=== PATIENT | male | born 1950 | race Caucasian/White ===

== ENCOUNTER 2018-08-06 10:22 | Day surgery (SDC) | payer MEDICARE, MEDICAID ==
[2018-08-04 16:58] LABS: BASOPHILS # (AUTO) 0.1 X10'3 (0-0.2); BASOPHILS % (AUTO) 0.8 % (0-1); EOSINOPHILS # (AUTO) 0.4 X10'3 (0-0.9); EOSINOPHILS % (AUTO) 3.9 % (0-6); HEMATOCRIT 44.6 % (42.0-52.0); HEMOGLOBIN 14.9 g/dl (14.0-17.9); LYMPHOCYTES # (AUTO) 2.4 X10'3 (1.1-4.8); LYMPHOCYTES % (AUTO) 21.8 % (21-51); MEAN CORPUSCULAR HEMOGLOBIN 31.9 PG (27.0-31.0); MEAN CORPUSCULAR HGB CONC 33.5 g/dL (33.0-36.5); MEAN CORPUSCULAR VOLUME 95.2 FL (78-98); MEAN PLATELET VOLUME 7.9 FL (7.4-10.4); MONOCYTES # (AUTO) 0.7 X10'3 (0-0.9); MONOCYTES % (AUTO) 6.9 % (2-12); NEUTROPHILS # (AUTO) 7.2 X10'3 (1.8-7.7); NEUTROPHILS % (AUTO) 66.6 % (42-75); PLATELET COUNT 331 X10'3 (140-440); RED BLOOD COUNT 4.68 X10'6 (4.70-6.10); RED CELL DISTRIBUTION WIDTH 13.6 % (11.5-14.5); WHITE BLOOD COUNT 10.8 X10'3 (4.5-11.0)
[2018-08-04 17:09] LABS: PARTIAL THROMBOPLASTIN TIME 27 SECONDS (22-32); PROTHROMBIN TIME 10.2 SECONDS (9.0-12.0)
[2018-08-04 17:15] LABS: ALANINE AMINOTRANSFERASE 27 U/L (12-78); ALBUMIN 4.2 G/DL (3.4-5.0); ALBUMIN/GLOBULIN RATIO 1.1 (1.1-1.5); ALKALINE PHOSPHATASE 113 IU/L (46-116); ANION GAP 10 (8-16); ASPARTATE AMINO TRANSFERASE 24 U/L (10-37); BILIRUBIN,TOTAL 0.4 MG/DL (0.1-1.0); BLOOD UREA NITROGEN 14 MG/DL (7-18); BUN/CREATININE RATIO 15.4 (5.4-32.0); CALCIUM 9.5 MG/DL (8.5-10.1); CHLORIDE 102 MMOL/L (99-107); CREATININE 0.91 MG/DL (0.60-1.10); GLUCOSE 100 MG/DL (70-104); POTASSIUM 3.7 MMOL/L (3.5-5.1); SODIUM 139 MMOL/L (135-145); TOTAL CARBON DIOXIDE 27.1 MMOL/L (24-32); TOTAL PROTEIN 8.1 G/DL (6.4-8.2); eGFR 83 ML/MIN
[2018-08-06] VITALS (12 sets, daily range): BP systolic 127–179; BP diastolic 61–86
[~2018-08-06] VITALS: Ht 180.3 cm; Wt 99.6 kg
[2018-08-06] MEDS ORDERED: normal saline 1000ml 1,000 ML IV SCH (10:45)
[2018-08-06] MEDS ORDERED: LORazepam 0.5 MG tablet PO PRN (10:45)
[2018-08-06] MEDS ORDERED: nitroGLYCERIN 0.4mg SUBLingual tab SL PRN (10:45)
[2018-08-06] MEDS ORDERED: diphenhydrAMINE 25mg capsule PO PRN (10:45)
[2018-08-06] MEDS ORDERED: IBUP-1986 PO (11:24)
[2018-08-06] MEDS ORDERED: VITA-321 (11:24)
[2018-08-06] MEDS ORDERED: L-METHYLFOLATE (11:25)
[2018-08-06] MEDS ORDERED: B12 (11:25)
[2018-08-06] MEDS ORDERED: LIDOcaine 1% (10mg/ml)w/preservative injection 20ml MDV ONE (12:01)
[2018-08-06] MEDS ORDERED: iohexol 350MG/ML 100ml bottle IV ONE (12:01)
[2018-08-06] MEDS ORDERED: midazolam 2 mg/2 ml injection ONE ×2 (12:01→12:45)
[2018-08-06] MEDS ORDERED: fentaNYL/PF 50MCG/1 ML 2ML syringe ONE (12:01)
[2018-08-06] MEDS ORDERED: iohexol 350 MG/ML 50ML vial IV ONE (12:01)
[2018-08-06] MEDS ORDERED: HYDROcodone/acetaminophen 5mg/325mg tablet PO PRN (13:30)
[2018-08-06] MEDS ORDERED: ondansetron/PF 4mg/2ml inj IV PRN (13:30)
[2018-08-06] MEDS ORDERED: proCHLORperazine 10 MG/2 ml inj IV PRN (13:30)
[2018-08-06] MEDS ORDERED: HYDROcodone/acetaminophen 10/325mg tab PO PRN (13:30)
[2018-08-06] MEDS ORDERED: OXAZEpam 15mg capsule PO PRN (13:30)
== END 2018-08-06 19:00 | disposition home or self-care (01) ==
LOC: SSTAY O 10:22
PROVIDERS: ATTEND Internal Medicine Cardiovascular Disease
DX: R07.89 Other chest pain (principal); Z79.01 Long term (current) use of anticoagulants; Z88.1 Allergy status to other antibiotic agents; Z88.8 Allergy status to other drugs, medicaments and biological substances; Z87.891 Personal history of nicotine dependence; Z88.0 Allergy status to penicillin; Z96.642 Presence of left artificial hip joint; Z79.899 Other long term (current) drug therapy
CPT/HCPCS: 36415; 71046; 80053; 85025; 85610; 85730; 93458; 99152; 99153; A6257; J1644; J2001; J2250; J3010; J7030; Q0163; Q9967; A4620; C1760; C1769

== ENCOUNTER 2018-08-19 08:23 | Inpatient (IN) | payer MEDICARE, MEDICAID ==
[2018-08-17 13:23] LABS: BASOPHILS # (AUTO) 0.1 X10'3 (0-0.2); BASOPHILS % (AUTO) 0.8 % (0-1); EOSINOPHILS # (AUTO) 0.3 X10'3 (0-0.9); EOSINOPHILS % (AUTO) 2.8 % (0-6); LYMPHOCYTES # (AUTO) 1.7 X10'3 (1.1-4.8); LYMPHOCYTES % (AUTO) 17.4 % (21-51); MEAN CORPUSCULAR HEMOGLOBIN 32.4 PG (27.0-31.0); MEAN CORPUSCULAR HGB CONC 34.3 g/dL (33.0-36.5); MEAN CORPUSCULAR VOLUME 94.6 FL (78-98); MEAN PLATELET VOLUME 7.6 FL (7.4-10.4); MONOCYTES # (AUTO) 0.8 X10'3 (0-0.9); NEUTROPHILS # (AUTO) 6.9 X10'3 (1.8-7.7); PRE OP HEMATOCRIT 42.1 % (42.0-52.0); PRE OP HEMOGLOBIN 14.4 g/dL (14.0-17.9); PRE OP PLATELET COUNT 328 X10'3 (140-440); RED BLOOD COUNT 4.45 X10'6 (4.70-6.10)
[2018-08-17 13:41] LABS: PRE OP PROTIME 10.2 SECONDS (9.0-12.0)
[2018-08-17 13:42] LABS: ALBUMIN 4.1 G/DL (3.4-5.0); ALKALINE PHOSPHATASE 113 IU/L (46-116); BLOOD UREA NITROGEN 14 MG/DL (7-18); BUN/CREATININE RATIO 17.7 (5.4-32.0); CALCIUM 9.7 MG/DL (8.5-10.1); CHLORIDE 102 MMOL/L (99-107); CREATININE 0.79 MG/DL (0.60-1.10); PRE OP ALT 39 U/L (30-65); PRE OP ANION GAP 11 (8-16); PRE OP AST 25 U/L (10-37); PRE OP BILIRUB, TOTAL 0.5 MG/DL (0.0-1.0); PRE OP GLUCOSE 105 MG/DL (70-104); PRE OP POTASSIUM 3.8 MMOL/L (3.4-5.1); PRE OP SODIUM 139 MMOL/L (135-145); TOTAL CARBON DIOXIDE 26.4 MMOL/L (24-32); TOTAL PROTEIN 8.1 G/DL (6.4-8.2); eGFR > 90 ML/MIN
[~2018-08-19] VITALS: Ht 180.3 cm; Wt 97.9 kg
[2018-08-19] VITALS (21 sets, daily range): BP systolic 119–153; BP diastolic 49–97
[~2018-08-19 08:23] MED LIST: IBUP-1986 PO; ceFAZolin 2gm in dextrose, iso 100 ML IV ONE; famotidine 20mg tablet PO ONE; ringers solution, lacted 1,000 ML IV SCH; tranexamic acid inj. 1,000 MG in normal saline 100 ML IV ONE; vancomycin inj 1,500 MG in normal saline 300ml IV soln IV ONE
[2018-08-19] MEDS ORDERED: METHYLFOLATE PO (09:05)
[2018-08-19] MEDS ORDERED: CHOL400T14 PO (09:05)
[2018-08-19] MEDS ORDERED: ASPI81TA52 PO (09:05)
[2018-08-19] MEDS ORDERED: MULT-933 PO (09:05)
[2018-08-19] MEDS ORDERED: [UNRECOGNIZED DRUG - CODE] (09:05)
[2018-08-19] MEDS ORDERED: MECO0.5P PO (09:05)
[2018-08-19] MEDS ORDERED: SELE200T25 PO (09:15)
[2018-08-19] MEDS ORDERED: ASPI-1264 PO (09:15)
[2018-08-19] MEDS ORDERED: MAGN296S50 PO (09:15)
[2018-08-19] MEDS ORDERED: CHOL300T (09:15)
[2018-08-19] MEDS ORDERED: [UNRECOGNIZED DRUG - CODE] (09:15)
[2018-08-19] MEDS ORDERED: tetracaine 1% (10mg/ml) pres. free inj. ONE (10:08)
[2018-08-19] MEDS ORDERED: diphenhydrAMINE 50 mg/ml inj ONE (10:10)
[2018-08-19] MEDS ORDERED: ePHEDrine 50MG/ML INJ. ONE (10:10)
[2018-08-19] MEDS ORDERED: fentaNYL/PF 50MCG/1 ML 2ML syringe ONE ×2 (10:12→10:50)
[2018-08-19] MEDS ORDERED: morphine /PF 1mg/ml 10ml inj. ONE (10:12)
[2018-08-19] MEDS ORDERED: MIDAZolam 5mg/5ml vial ONE (10:12)
[2018-08-19] MEDS ORDERED: LIDOcaine 1%/PF 5ML 10 MG/ML VIAL ONE (10:40)
[2018-08-19] MEDS ORDERED: propofol inj 20 ML IV ONE ×3 (10:40→13:11)
[2018-08-19] MEDS ORDERED: naloxone 2mg/2ml inj 2 MG in normal saline 500ml IV soln 500 ML IV PRN (11:40)
[2018-08-19] MEDS ORDERED: ringers solution, lacted 1,000 ML IV SCH (11:40)
[2018-08-19] MEDS ORDERED: diphenhydrAMINE 50 mg/ml inj IV PRN (11:40)
[2018-08-19] MEDS ORDERED: ondansetron/PF 4mg/2ml inj IV PRN ×2 (11:40)
[2018-08-19] MEDS ORDERED: proCHLORperazine 10 MG/2 ml inj IV PRN ×2 (11:40→22:10)
[2018-08-19] MEDS ORDERED: meperidine/PF 25mg/ml syringe IV PRN ×3 (11:40)
[2018-08-19] MEDS ORDERED: morphine 4 MG/ML inj SYRINge IV PRN ×2 (11:40)
[2018-08-19] MEDS ORDERED: midazolam 2 mg/2 ml injection ONE (12:06)
--- NOTE | 2018-08-19 12:59 | NUR ---
Received from OR via BED, accompanied by Anesthesiologist DR PECK and report given by Anesthesiologist. PT AWAKE, DENIES PAIN, LEFT HIP W/WRAP, ABDUCTION WEDGE, ICE PACK, CHARLENE DRAIN, CDI. Addendum: 08/19/18 at 1346 by Mirlande Conde RN Amended: Links added.
[2018-08-19] MEDS ORDERED: ondansetron/PF 4mg/2ml inj ONE (13:11)
[2018-08-19] MEDS ORDERED: HYDROmorphone 1 mg/ml syringe IV PRN (13:20)
[2018-08-19] MEDS ORDERED: acetaminophen 325mg tablet PO PRN (13:20)
[2018-08-19] MEDS ORDERED: diphenhydrAMINE 25mg capsule PO PRN (13:20)
[2018-08-19] MEDS ORDERED: magnesium hydroxide 30ml (MOM) UD suspension PO PRN (13:20)
[2018-08-19] MEDS ORDERED: bisacodyl 10mg suppository rectal RC PRN (13:20)
--- NOTE | 2018-08-19 14:35 | NUR ---
Patient transferring to room ORTHO 4024. I have received report from Mirlande Ness in Recovery and had the opportunity to ask questions and assume patient care.
--- NOTE | 2018-08-19 14:39 | NUR ---
Report called to receiving nurse. Transferred via BED, 2 BAGS OF Belongings AND CRUTCHES SENT W/PT TO ROOM 402, RECEIVING RN AT BEDSIDE TO RECEIVE PT, BLL, CALL LIGHT GIVEN, SIDE RAILS UP X 2. Special Issues communicated to receiving nurse. YES. Addendum: 08/19/18 at 1456 by Mirlande Conde RN Amended: Links added.
[2018-08-19] MEDS: ceFAZolin 1GM/D5W- ADD-VANTAGE 50 ML IV SCH (16:05)
[2018-08-19] MEDS: potassium Cl 20mEq in NS 1,000 ML IV SCH (16:07)
[2018-08-19] MEDS: ondansetron/PF 4mg/2ml inj IV PRN (17:37)
[2018-08-19] MEDS: HYDROcodone/acetaminophen 10/325mg tab PO PRN (17:38)
--- NOTE | 2018-08-19 18:10 | NUR ---
Problems reprioritized. Patient report given, questions answered & plan of care reviewed with Brigid CUMMINGS.
--- NOTE | 2018-08-19 18:20 | NUR ---
Patient in room ORTHO 4024. I have received report from Herlinda CUMMINGS and had the opportunity to ask questions and assume patient care.
[2018-08-19] MEDS ORDERED: HYDROcodone/acetaminophen 10/325mg tab PO ONE (19:25)
[2018-08-19] MEDS ORDERED: vancomycin/NS 1 GM ADD-VANTAGE 250 ML IV SCH (20:00)
--- NOTE | 2018-08-19 20:30 | NUR ---
called Dr. Steele to inform him that patient needed a one time Rufe order and he gave me the order.
[2018-08-19] MEDS: sennosides 8.6mg tablet PO SCH (21:00)
--- NOTE | 2018-08-19 22:30 | NUR ---
Dr. Steele gave me an order for Compazine IV since he is still vomiting up bile after getting Zofran.
[2018-08-20] MEDS: ceFAZolin 1GM/D5W- ADD-VANTAGE 50 ML IV SCH (00:26)
[2018-08-20] MEDS: ondansetron/PF 4mg/2ml inj IV PRN (00:33)
[2018-08-20] MEDS: diphenhydrAMINE 25mg capsule PO PRN ×2 (01:30→22:18)
[2018-08-20 02:00] VITALS: BP 141/67
[2018-08-20] MEDS: potassium Cl 20mEq in NS 1,000 ML IV SCH ×4 (02:02→21:16)
[2018-08-20] MEDS: HYDROcodone/acetaminophen 10/325mg tab PO PRN ×5 (05:34→22:21)
[2018-08-20 06:00] VITALS: BP 154/77
--- NOTE | 2018-08-20 06:15 | NUR ---
Patient in room ORTHO 4024. I have received report from Brigid CUMMINGS and had the opportunity to ask questions and assume patient care.
[2018-08-20 07:35] LABS: BASOPHILS % (AUTO) 0.3 % (0-1); EOSINOPHILS # (AUTO) 0.1 X10'3 (0-0.9); EOSINOPHILS % (AUTO) 0.6 % (0-6); HEMATOCRIT 36.5 % (42.0-52.0); HEMOGLOBIN 12.3 g/dl (14.0-17.9); LYMPHOCYTES # (AUTO) 1.3 X10'3 (1.1-4.8); MEAN CORPUSCULAR HGB CONC 33.6 g/dL (33.0-36.5); MEAN PLATELET VOLUME 7.8 FL (7.4-10.4); MONOCYTES # (AUTO) 1.2 X10'3 (0-0.9); MONOCYTES % (AUTO) 11.4 % (2-12); NEUTROPHILS # (AUTO) 8.3 X10'3 (1.8-7.7); NEUTROPHILS % (AUTO) 75.7 % (42-75); PLATELET COUNT 272 X10'3 (140-440); RED BLOOD COUNT 3.84 X10'6 (4.70-6.10); RED CELL DISTRIBUTION WIDTH 13.5 % (11.5-14.5); WHITE BLOOD COUNT 10.9 X10'3 (4.5-11.0)
[2018-08-20 08:15] LABS: ALANINE AMINOTRANSFERASE 25 U/L (12-78); ALBUMIN 3.1 G/DL (3.4-5.0); ALBUMIN/GLOBULIN RATIO 0.9 (1.1-1.5); ALKALINE PHOSPHATASE 81 IU/L (46-116); ANION GAP 8 (8-16); ASPARTATE AMINO TRANSFERASE 19 U/L (10-37); BILIRUBIN,TOTAL 0.7 MG/DL (0.1-1.0); BLOOD UREA NITROGEN 7 MG/DL (7-18); BUN/CREATININE RATIO 7.5 (5.4-32.0); CALCIUM 8.4 MG/DL (8.5-10.1); CHLORIDE 103 MMOL/L (99-107); CREATININE 0.93 MG/DL (0.60-1.10); GLUCOSE 119 MG/DL (70-104); POTASSIUM 3.9 MMOL/L (3.5-5.1); SODIUM 136 MMOL/L (135-145); TOTAL CARBON DIOXIDE 24.6 MMOL/L (24-32); TOTAL PROTEIN 6.5 G/DL (6.4-8.2); eGFR 81 ML/MIN
[2018-08-20] MEDS: aspirin 325mg tablet PO SCH (09:16)
[2018-08-20 10:00] VITALS: BP 146/64
[2018-08-20] MEDS ORDERED: mag hydrox/Alum hydrox/simeth 30ml oral suspension PO PRN (15:20)
[2018-08-20] MEDS: simethicone 125mg capsule PO PRN ×2 (15:56→18:23)
[2018-08-20 18:00] VITALS: BP 131/66
--- NOTE | 2018-08-20 18:16 | NUR ---
Problems reprioritized. Patient report given, questions answered & plan of care reviewed with Brittany Devi RN.
[2018-08-20] MEDS ORDERED: simethicone 125mg capsule PO SCH (21:00)
[2018-08-20 22:00] VITALS: BP 136/67
[2018-08-20] MEDS: sennosides 8.6mg tablet PO SCH (22:18)
[2018-08-21] MEDS: potassium Cl 20mEq in NS 1,000 ML IV SCH (05:16)
[2018-08-21] MEDS: HYDROcodone/acetaminophen 10/325mg tab PO PRN ×5 (05:19→22:00)
[2018-08-21 06:00] VITALS: BP 152/67
--- NOTE | 2018-08-21 06:25 | NUR ---
Patient in room ORTHO 4024. I have received report from Brittany Devi RN and had the opportunity to ask questions and assume patient care.
--- NOTE | 2018-08-21 06:26 | NUR ---
Problems reprioritized. Patient report given, questions answered & plan of care reviewed with ZOILA Pate.
[2018-08-21] MEDS: aspirin 325mg tablet PO SCH (08:21)
[2018-08-21 08:27] LABS: BASOPHILS % (AUTO) 0.2 % (0-1); EOSINOPHILS # (AUTO) 0.2 X10'3 (0-0.9); EOSINOPHILS % (AUTO) 1.4 % (0-6); HEMATOCRIT 34.7 % (42.0-52.0); HEMOGLOBIN 11.6 g/dl (14.0-17.9); LYMPHOCYTES # (AUTO) 1.1 X10'3 (1.1-4.8); LYMPHOCYTES % (AUTO) 7.5 % (21-51); MEAN CORPUSCULAR HEMOGLOBIN 31.7 PG (27.0-31.0); MEAN CORPUSCULAR HGB CONC 33.3 g/dL (33.0-36.5); MEAN CORPUSCULAR VOLUME 95.3 FL (78-98); MEAN PLATELET VOLUME 7.9 FL (7.4-10.4); MONOCYTES # (AUTO) 1.5 X10'3 (0-0.9); MONOCYTES % (AUTO) 10.8 % (2-12); NEUTROPHILS # (AUTO) 11.2 X10'3 (1.8-7.7); NEUTROPHILS % (AUTO) 80.1 % (42-75); PLATELET COUNT 273 X10'3 (140-440); RED BLOOD COUNT 3.65 X10'6 (4.70-6.10); RED CELL DISTRIBUTION WIDTH 13.9 % (11.5-14.5)
[2018-08-21 08:57] LABS: ALANINE AMINOTRANSFERASE 26 U/L (12-78); ALBUMIN 2.9 G/DL (3.4-5.0); ALBUMIN/GLOBULIN RATIO 0.8 (1.1-1.5); ALKALINE PHOSPHATASE 91 IU/L (46-116); ANION GAP 11 (8-16); ASPARTATE AMINO TRANSFERASE 22 U/L (10-37); BILIRUBIN,TOTAL 0.6 MG/DL (0.1-1.0); BLOOD UREA NITROGEN 8 MG/DL (7-18); BUN/CREATININE RATIO 10.3 (5.4-32.0); CALCIUM 8.9 MG/DL (8.5-10.1); CHLORIDE 102 MMOL/L (99-107); CREATININE 0.78 MG/DL (0.60-1.10); GLUCOSE 108 MG/DL (70-104); POTASSIUM 3.6 MMOL/L (3.5-5.1); SODIUM 136 MMOL/L (135-145); TOTAL CARBON DIOXIDE 23.5 MMOL/L (24-32); TOTAL PROTEIN 6.7 G/DL (6.4-8.2); eGFR > 90 ML/MIN
[2018-08-21 10:00] VITALS: BP 164/64
[2018-08-21 18:00] VITALS: BP 132/64
[2018-08-21] MEDS: sennosides 8.6mg tablet PO SCH (21:00)
[2018-08-21 22:00] VITALS: BP 152/63
[2018-08-21] MEDS: diphenhydrAMINE 25mg capsule PO PRN (22:01)
[2018-08-22] MEDS: HYDROcodone/acetaminophen 10/325mg tab PO PRN (03:21)
[2018-08-22 06:00] VITALS: BP 129/65
--- NOTE | 2018-08-22 06:40 | NUR ---
Problems reprioritized. Patient report given, questions answered & plan of care reviewed with ZOLIA silveira.
[2018-08-22 07:45] LABS: BASOPHILS % (AUTO) 0.4 % (0-1); EOSINOPHILS # (AUTO) 0.6 X10'3 (0-0.9); EOSINOPHILS % (AUTO) 4.3 % (0-6); HEMATOCRIT 32.7 % (42.0-52.0); HEMOGLOBIN 11.1 g/dl (14.0-17.9); LYMPHOCYTES # (AUTO) 1.6 X10'3 (1.1-4.8); LYMPHOCYTES % (AUTO) 12.4 % (21-51); MEAN CORPUSCULAR HEMOGLOBIN 32.1 PG (27.0-31.0); MEAN CORPUSCULAR HGB CONC 33.9 g/dL (33.0-36.5); MEAN CORPUSCULAR VOLUME 94.7 FL (78-98); MEAN PLATELET VOLUME 7.8 FL (7.4-10.4); MONOCYTES # (AUTO) 1.2 X10'3 (0-0.9); MONOCYTES % (AUTO) 9.6 % (2-12); NEUTROPHILS # (AUTO) 9.4 X10'3 (1.8-7.7); NEUTROPHILS % (AUTO) 73.3 % (42-75); PLATELET COUNT 301 X10'3 (140-440); RED BLOOD COUNT 3.45 X10'6 (4.70-6.10); RED CELL DISTRIBUTION WIDTH 13.8 % (11.5-14.5); WHITE BLOOD COUNT 12.8 X10'3 (4.5-11.0)
[2018-08-22 08:11] LABS: ALANINE AMINOTRANSFERASE 33 U/L (12-78); ALBUMIN 2.6 G/DL (3.4-5.0); ALBUMIN/GLOBULIN RATIO 0.7 (1.1-1.5); ALKALINE PHOSPHATASE 108 IU/L (46-116); ANION GAP 10 (8-16); ASPARTATE AMINO TRANSFERASE 30 U/L (10-37); BILIRUBIN,TOTAL 0.6 MG/DL (0.1-1.0); BLOOD UREA NITROGEN 11 MG/DL (7-18); BUN/CREATININE RATIO 13.6 (5.4-32.0); CALCIUM 8.5 MG/DL (8.5-10.1); CHLORIDE 102 MMOL/L (99-107); CREATININE 0.81 MG/DL (0.60-1.10); GLUCOSE 107 MG/DL (70-104); POTASSIUM 3.4 MMOL/L (3.5-5.1); SODIUM 137 MMOL/L (135-145); TOTAL CARBON DIOXIDE 25.4 MMOL/L (24-32); TOTAL PROTEIN 6.5 G/DL (6.4-8.2); eGFR > 90 ML/MIN
[2018-08-22] MEDS: aspirin 325mg tablet PO SCH (08:13)
[2018-08-22 10:00] VITALS: BP 147/64
[2018-08-22] MEDS ORDERED: potassium Cl 20 mEq SR tablet PO ONE (13:35)
--- NOTE | 2018-08-22 16:24 | NUR ---
Joint replacement consult: Pt seen by [facility] for written/verbal high protein ed. RD reviewed high protein needs for wound healing, immune strength, high protein foods, and protein supplementation options. RD contact information provided in case of further questions. Pt to receive early dinner tray since transferring to nursing facility after their dinner and will not receive one upon entry per RN as well as leaving before dinner served. [facility] d/w dietary. Addendum: 08/22/18 at [address] Amended: Links added.
--- NOTE | 2018-08-22 17:56 | NUR ---
Gave report to Melissa/Bill r/vera pt DC. No IV, no Tele on DC.
== END 2018-08-22 18:15 | DRG 470 ==
LOC: PAS IN 08:23 → EDSTATUS 10:30 → ORTHO 4S 14:45
PROVIDERS: ADMIT Orthopaedic Surgery; ATTEND Orthopaedic Surgery
PROC: 0SRB0JZ Replacement of Left Hip Joint with Synthetic Substitute, Open Approach (ICD-10-PCS; principal; 2018-08-19 10:10)
DX: M16.12 Unilateral primary osteoarthritis, left hip (principal); D62 Acute posthemorrhagic anemia; I25.10 Atherosclerotic heart disease of native coronary artery without angina pectoris; G47.30 Sleep apnea, unspecified; Z88.0 Allergy status to penicillin; Z88.1 Allergy status to other antibiotic agents; Z88.8 Allergy status to other drugs, medicaments and biological substances; Z91.048 Other nonmedicinal substance allergy status
CPT/HCPCS: 36415; 80053; 82948; 85025; 85610; 85730; 86885; 86900; 86901; 87070; 97010; 97110; 97116; 97162; 97530; A7000; A9272; C1758; C1776; G0378; J0690; J0780; J1200; J2001; J2175; J2250; J2274; J2405; J2704; J3010; J3370; J7030; J7120; Q0163

== ENCOUNTER 2019-08-11 14:34 | Emergency (ER) | payer MEDICARE, MEDICAID ==
[~2019-08-11] VITALS: Ht 180.3 cm; Wt 101.3 kg
[~2019-08-11 14:34] MED LIST changes: +ASPI-1264 PO; -IBUP-1986 PO; -ceFAZolin 2gm in dextrose, iso 100 ML IV ONE; -famotidine 20mg tablet PO ONE; -ringers solution, lacted 1,000 ML IV SCH; -tranexamic acid inj. 1,000 MG in normal saline 100 ML IV ONE; -vancomycin inj 1,500 MG in normal saline 300ml IV soln IV ONE
[2019-08-11 15:20] VITALS: BP 201/114
[2019-08-11] MEDS ORDERED: ALBU8HFA PO (17:02)
[2019-08-11] MEDS ORDERED: AZIT-72 PO (17:02)
== END 2019-08-11 17:15 | disposition home or self-care (01) ==
LOC: ER 14:34
DX: J20.9 Acute bronchitis, unspecified (principal); I10 Essential (primary) hypertension; R19.7 Diarrhea, unspecified; I25.10 Atherosclerotic heart disease of native coronary artery without angina pectoris; I25.2 Old myocardial infarction; Z91.018 Allergy to other foods; Z88.0 Allergy status to penicillin; Z88.1 Allergy status to other antibiotic agents; Z79.82 Long term (current) use of aspirin; Z79.2 Long term (current) use of antibiotics
CPT/HCPCS: 71045; 99283

== ENCOUNTER 2021-04-11 12:54 | Emergency (ER) | payer MEDICARE, MEDICAID ==
[~2021-04-11] VITALS: Ht 198.1 cm; Wt 100.0 kg
[2021-04-11 14:04] LABS: BASOPHILS # (AUTO) 0.1 X10'3 (0-0.2); BASOPHILS % (AUTO) 0.8 % (0-1); EOSINOPHILS # (AUTO) 0.1 X10'3 (0-0.9); EOSINOPHILS % (AUTO) 0.8 % (0-6); HEMATOCRIT 43.1 % (42.0-52.0); HEMOGLOBIN 14.7 g/dl (14.0-17.9); LYMPHOCYTES # (AUTO) 1.5 X10'3 (1.1-4.8); LYMPHOCYTES % (AUTO) 16.7 % (21-51); MEAN CORPUSCULAR HEMOGLOBIN 33.1 PG (27.0-31.0); MEAN CORPUSCULAR HGB CONC 34.1 g/dL (33.0-36.5); MEAN CORPUSCULAR VOLUME 97.2 FL (78-98); MONOCYTES # (AUTO) 1.2 X10'3 (0-0.9); MONOCYTES % (AUTO) 12.9 % (2-12); NEUTROPHILS # (AUTO) 6.3 X10'3 (1.8-7.7); NEUTROPHILS % (AUTO) 68.8 % (42-75); PLATELET COUNT 174 X10'3 (140-440); RED BLOOD COUNT 4.44 X10'6 (4.70-6.10); WHITE BLOOD COUNT 9.1 X10'3 (4.5-11.0)
[2021-04-11 14:36] LABS: ALANINE AMINOTRANSFERASE 82 U/L (12-78); ALBUMIN 3.5 G/DL (3.4-5.0); ALBUMIN/GLOBULIN RATIO 0.8 (1.1-1.5); ALKALINE PHOSPHATASE 199 IU/L (46-116); ANION GAP 17 (8-16); ASPARTATE AMINO TRANSFERASE 241 U/L (10-37); BILIRUBIN,TOTAL 1.5 MG/DL (0.1-1.0); BLOOD UREA NITROGEN 8 MG/DL (7-18); BUN/CREATININE RATIO 7.2 (5.4-32.0); CALCIUM 7.8 MG/DL (8.5-10.1); CHLORIDE 99 MMOL/L (99-107); CREATININE 1.11 MG/DL (0.60-1.10); GLUCOSE 158 MG/DL (70-104); SODIUM 141 MMOL/L (135-145); TOTAL CARBON DIOXIDE 25.3 MMOL/L (24-32); eGFR 65 ML/MIN
[2021-04-11 14:43] LABS: POTASSIUM 2.9 MMOL/L (3.5-5.1)
[2021-04-11] MEDS ORDERED: potassium Cl 20 mEq SR tablet PO STA (15:08)
[2021-04-11] MEDS ORDERED: normal saline 1000ml 1,000 ML IV ONE ×2 (15:10→16:55)
[2021-04-11] MEDS ORDERED: ondansetron/PF 4mg/2ml inj IV ONE ×2 (15:10→18:40)
[2021-04-11 15:29] LABS: ETHANOL 0.277 GM/DL (0.0-0.010)
[2021-04-11 19:36] VITALS: BP 148/90
== END 2021-04-12 07:44 | disposition home or self-care (01) ==
LOC: ER 12:54
DX: F10.129 Alcohol abuse with intoxication, unspecified (principal); S09.90XA Unspecified injury of head, initial encounter; W18.30XA Fall on same level, unspecified, initial encounter; Y92.009 Unspecified place in unspecified non-institutional (private) residence as the place of occurrence of the external cause; E87.6 Hypokalemia; R19.7 Diarrhea, unspecified; R06.02 Shortness of breath; R05.9 Cough, unspecified; R11.0 Nausea; F10.10 Alcohol abuse, uncomplicated; I25.10 Atherosclerotic heart disease of native coronary artery without angina pectoris; I10 Essential (primary) hypertension; I25.2 Old myocardial infarction; Z88.0 Allergy status to penicillin; Z88.1 Allergy status to other antibiotic agents; Z91.018 Allergy to other foods; Z79.82 Long term (current) use of aspirin; Y90.0 Blood alcohol level of less than 20 mg/100 ml
CPT/HCPCS: 36415; 70450; 71045; 80053; 80320; 84484; 85025; 93005; 96361; 96374; 96376; 99285; J2405; J7030